=== PATIENT | female | born 1970 | race Two or more races ===

== ENCOUNTER 2021-07-12 05:23 | Day surgery (SDC) | payer OTHER ==
[2021-07-08 17:02] VITALS: BMI 29.8
[2021-07-12 06:23] VITALS: TEMP 97.1
[2021-07-12] MEDS ORDERED: GENTAMICIN SO4 80 MG/2 ML VIAL ONE (07:20)
[2021-07-12] MEDS ORDERED: LIDOCAINE HCL 1%, 10 MG/ML (20ML VIAL) ONE (07:20)
[2021-07-12] MEDS ORDERED: BUPIVACAINE HCL/PF 0.5% (5MG/ML) 10 ML VIAL ONE ×2 (07:20→07:46)
[2021-07-12] MEDS ORDERED: LIDOCAINE HCL 2% (20ML MULTI-DOSE VIAL) ONE (07:46)
[2021-07-12] MEDS ORDERED: MIDAZOLAM HCL 2 MG/2 ML SINGLE DOSE VIAL ONE ×3 (08:03→08:50)
[2021-07-12] MEDS ORDERED: PROPOFOL 20 ML ONE ×2 (08:08)
[2021-07-12] MEDS ORDERED: LIDOCAINE HCL 2% (50ML VIAL) NR ONE (08:09)
[2021-07-12] MEDS ORDERED: BUPIVACAINE HCL/PF 0.5% (5 MG/ML) 30 ML VIAL IJ ONE (08:09)
[2021-07-12] MEDS ORDERED: DEXAMETHASONE SOD PHOSPHATE 4 MG/1 ML VIAL ONE (09:19)
[2021-07-12 11:07] VITALS: BP 125/73; PULSE 73
== END 2021-07-12 12:10 | disposition home or self-care (01) ==
LOC: JASU-SURG 05:23
PROVIDERS: ATTEND Podiatrist
PROC: 0SN Lower Joints, Release (ICD-10-PCS; 2021-07-12)
PROC: 0QSN04Z Reposition Right Metatarsal with Internal Fixation Device, Open Approach (ICD-10-PCS; 2021-07-12)
PROC: 0QPN04Z Removal of Internal Fixation Device from Right Metatarsal, Open Approach (ICD-10-PCS; principal; 2021-07-12 07:30)
DX: T84.84XA Pain due to internal orthopedic prosthetic devices, implants and grafts, initial encounter (principal); M79.671 Pain in right foot; M21.611 Bunion of right foot
CPT/HCPCS: 73630-TC-RT-FY; 81025; 88300-TC; 88304-TC; 88311-TC